=== PATIENT | female | born 1970 | race Caucasian/White ===

== ENCOUNTER 2016-12-05 08:19 | Observation (INO) | payer BC ==
[~2016-12-05] VITALS: Ht 165.1 cm; Wt 75.4 kg
[~2016-12-05 08:19] MED LIST: AMBI5TAB PO; BUTA1CAP5 PO; CITA10TA4 PO; DICL25 PO; IMIT100T PO; TOPA25TA8 PO
[2016-12-05] MEDS ORDERED: SODIUM CHLORID 0.9% 500 ML IV PRN (09:00)
[2016-12-05] MEDS ORDERED: ceFAZolin 2 GM PREMIX 50 ML IV SCH (09:00)
[2016-12-05] MEDS ORDERED: LACTATED RINGER'S 1000 ML IV PRN (09:00)
[2016-12-05] MEDS ORDERED: CHLORHEXIDINE GLUCONATE 2 % 1 PACK (2 CLOTHS) TOPICAL PRN (09:00)
[2016-12-05] MEDS ORDERED: INSULIN HUMAN REGULAR 1,000 UNITS/10 ML VIAL SQ PRN (09:00)
[2016-12-05] MEDS ORDERED: POVIDONE IODINE 5% (ANTISEPSIS KIT) 4 APPLICATIONS EACH NARE PRN (09:00)
[2016-12-05] MEDS ORDERED: METOPROLOL TARTRATE 25 MG TAB PO PRN (09:00)
[2016-12-05] MEDS ORDERED: CITA40TA4 PO (09:18)
[2016-12-05] MEDS ORDERED: ALPR.25 PO (09:19)
[2016-12-05 09:20] VITALS: BP 100/70; PULSE 75; RESP 16; TEMP 98.1; O2SAT 98
[2016-12-05] MEDS ORDERED: MIDAZOLAM HCL 2 MG/2 ML VIAL ONE (10:04)
[2016-12-05] MEDS ORDERED: ACETAMINOPHEN 1000 MG/100 ML VIAL IV ONE (10:04)
[2016-12-05] MEDS ORDERED: FAMOTIDINE 20 MG/2 ML VIAL ONE (10:04)
[2016-12-05] MEDS ORDERED: BUPIVACAINE/EPINEPHRINE 0.25% PF 30 ML VIAL INFIL ONE (10:31)
[2016-12-05] MEDS ORDERED: IOHEXOL 350 MG/ML 10 ML VIAL (for RAD DIAG) OTHER ONE (10:31)
[2016-12-05] MEDS ORDERED: DO NOT ADM ANY ANTICOAGULANT DRUGS PRN (11:30)
[2016-12-05] MEDS ORDERED: SODIUM CHLOR 0.9% 1000 ML INJ 1,000 ML IV SCH (11:37)
[2016-12-05] MEDS ORDERED: fentaNYL CITRATE 250 MCG/5 ML AMP ONE (11:41)
--- NOTE | 2016-12-05 11:41 | HHI.PR ---
Immediate Post Op Note Procedure Date: December 05, 2016 Pre Op Diagnosis: cholecystitis Post Op Diagnosis: same, adhesions umbilical region Surgeon: Matthew Patrick Certified Hyperbaric Technologist(s): staff Procedure: lap daysi, lap BUCKY Findings: adhesions, gallstones Complications: none Estimated blood loss: minimal Anesthesia: General Drains: None IVF Patient to: PACU Patient Condition: Good Matthew Patrick MD December 05, 2016 11:41
[2016-12-05] MEDS ORDERED: *PROMETHAZINE 25 MG/ML VIAL PERIprocedural use ONLY ONE (11:44)
[2016-12-05] MEDS ORDERED: ACETAMINOPHEN/HYDROcodone 325 MG/5 MG TAB PO PRN ×2 (11:45)
[2016-12-05] MEDS ORDERED: SODIUM CHLORIDE 0.9% FLUSH 5 ML FLUSH IVF PRN (11:45)
[2016-12-05] MEDS ORDERED: diphenhydrAMINE HCL 25 MG CAP PO PRN (11:45)
[2016-12-05] MEDS ORDERED: NALOXONE HCL 0.4 MG/ML AMP IV PRN (11:45)
[2016-12-05] MEDS ORDERED: KETOROLAC TROMETHAMINE 30 MG/ML (IVP) VIAL IVP PRN (11:45)
[2016-12-05] MEDS ORDERED: MORPHINE SULFATE 4 MG/ML INJ IV PUSH PRN (11:45)
[2016-12-05] MEDS ORDERED: SODIUM CHLORIDE 0.9% FLUSH 5 ML FLUSH IVF SCH (11:45)
[2016-12-05] MEDS ORDERED: Post-op Orders (for Pharmacy) MISC XX ONE (11:45)
[2016-12-05] MEDS ORDERED: HYDROmorphone HCL PF 1 MG/ML VIAL IV PRN (11:45)
[2016-12-05] MEDS ORDERED: *morphine SULFATE 8 MG/ML PERIprocedure ONLY ONE ×2 (11:47→12:31)
[2016-12-05] MEDS ORDERED: *MEPERIDINE 25 MG INJ VIAL PERIprocedural Use ONLY ONE (11:59)
[2016-12-05] MEDS ORDERED: ePHEDrine/NS 25 MG/5 ML SYR IV ONE (12:00)
[2016-12-05] MEDS ORDERED: NEOSTIGMINE 3 MG/3 ML SYR IV ONE (12:00)
[2016-12-05] MEDS ORDERED: KETOROLAC TROMETHAMINE 60 MG/2 ML (IM) VIAL IM ONE (12:00)
[2016-12-05] MEDS ORDERED: PROPOFOL 200 MG/20 ML AMP IV ONE (12:00)
[2016-12-05] MEDS ORDERED: LACTATED RINGER'S 1000 ML INJ 1,000 ML IV ONE (12:00)
[2016-12-05 13:30] VITALS: BP 123/71; PULSE 82; RESP 18; TEMP 96.8; O2SAT 98
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
== END 2016-12-05 13:54 | disposition home or self-care (01) ==
LOC: HSDC 08:19 → HSDI 11:39
PROVIDERS: ADMIT Surgery Trauma Surgery; ATTEND Surgery Trauma Surgery
DX: K80.12 Calculus of gallbladder with acute and chronic cholecystitis without obstruction (principal); K66.0 Peritoneal adhesions (postprocedural) (postinfection); K21.9 Gastro-esophageal reflux disease without esophagitis; Z88.2 Allergy status to sulfonamides
CPT/HCPCS: 47562; 88304; J0131; J0690; J1885; J2175; J2250; J2270; J2550; J2710; J3010; J7120; Q9967